=== PATIENT | male | born 1985 | race Caucasian/White ===

== ENCOUNTER 2017-01-07 10:04 | Emergency (ER) | payer OTHER ==
[2017-01-07 10:09] VITALS: BP 155/95; PULSE 94; TEMP 98.8; BMI 39.1
[2017-01-07] MEDS ORDERED: IBUPROFEN 600 MG TABLET (FP) PO ONE ×2 (10:19→10:35)
--- NOTE | 2017-01-07 10:36 | PDOC ---
History of Present Illness - General Chief Complaint: Pain, Acute Stated Complaint: LEFT KNEE PAIN Time Seen by Provider: 01/07/17 10:15 History Source: Patient Exam Limitations: No Limitations - History of Present Illness Initial Comments: 01/07/17 10:31 31 you male with no pmhx s/p fall from ladder . top rung broke, and he slid down ladder landing on feet. c/o left anterior weiss pain. happened 25 min prior to arrival. has ambulatory since, drove himself to ED. no head trauma. no head, neck or back pain. pain mild in left weiss. last tetanus unknown. 01/07/17 10:44 Past History - Travel Traveled outside of the country in the last 30 days: No - Past Medical History Allergies/Adverse Reactions: Allergies Allergy/AdvReac Type Severity Reaction Status Date / Time No Known Allergies Allergy Verified 01/07/17 10:05 Home Medications: Ambulatory Orders Lisdexamfetamine Dimesylate [Vyvanse] 50 mg PO DAILY 01/07/16 Ibuprofen [Motrin -] 600 mg PO TID #90 tablet 01/07/17 GI Disorders: Yes (REFLUX) - Surgical History Abdominal Surgery: Yes (LAP FUNDPLICATION) - Suicide/Smoking/Psychosocial Hx Smoking History: Never smoked Information on smoking cessation initiated: No Hx Alcohol Use: Yes Drug/Substance Use Hx: No Substance Use Type: Alcohol Review of Systems - Review of Systems Constitutional: No: Chills HEENTM: No: Eye Pain, Blurred Vision Respiratory: No: Cough, Orthopnea Cardiac (ROS): No: Chest Pain, Edema : No: Burning, Dysuria Musculoskeletal: Yes: Joint Pain (left weiss, knee). No: Back Pain Integumentary: Yes: Bruising Neurological: No: Headache, Numbness Psychiatric: No: Frequent Crying All Other Systems: Reviewed and Negative *Physical Exam - Vital Signs Last Vital Signs Temp Pulse Resp BP Pulse Ox 98.8 F 94 H 18 155/95 98 01/07/17 10:05 01/07/17 10:05 01/07/17 10:05 01/07/17 10:05 01/07/17 10:05 - Physical Exam General Appearance: Yes: Appropriately Dressed HEENT: positive: JOSE EDUARDO, Normal ENT Inspection, Other (no cervical spinal tenderness) Neck: positive: Trachea midline. negative: Tender Respiratory/Chest: positive: Lungs Clear, Normal Breath Sounds. negative: Chest Tender Cardiovascular: positive: Regular Rhythm, Regular Rate, S1, S2. negative: Edema , JVD, Murmur Gastrointestinal/Abdominal: positive: Normal Bowel Sounds, Flat, Soft. negative : Tender Male Genitalia: negative: normal genitalia, normal prostate Musculoskeletal: negative: Normal Inspection, CVA Tenderness Extremity: positive: Normal Capillary Refill, Normal Inspection, Other (left anterior weiss ttp. no eccymosis. mild erythema. knee from., no laxity . neg ant / post drawer) Integumentary: positive: Normal Color, Dry, Warm, Ecchymosis, Other (abrasion to left upper inner arm superficial. right forearm abrasion. right knee superifical abrasion) Neurologic: positive: Fully Oriented, Alert, Normal Mood/Affect, Other (GCS 15 from . 5/5 ext . skin warm and dry.) Medical Decision Making - Medical Decision Making 01/07/17 10:37 pt with s/p fall from ladder. c/o left weiss pain. just recollected last tetanus one year ago. will xray pain control. likely dc home. 01/07/17 11:08 xray negative for fx. dc home. *DC/Admit/Observation/Transfer Diagnosis at time of Disposition: Contusion - Discharge Dispostion Condition at time of disposition: Improved - Prescriptions Prescriptions: Ibuprofen [Motrin -] 600 mg PO TID #90 tablet - Patient Instructions Printed Discharge Instructions: Contusion Additional Instructions: take motrin 600 mg every 8 hours as needed for pain. you will be sore for 3 - 5 days. apply bacitracin ointment to scratches and abrasions twice daily. clean with mild soap and water. return for any problems or concerns.
== END 2017-01-07 11:16 | disposition home or self-care (01) ==
LOC: FER 10:04
DX: S80.12XA Contusion of left lower leg, initial encounter (principal); W11.XXXA Fall on and from ladder, initial encounter; Y93.9 Activity, unspecified; Y92.9 Unspecified place or not applicable; Y99.9 Unspecified external cause status
CPT/HCPCS: 73562-TC-LT; 73590-TC-LT; 99283-25